=== PATIENT | male | born 1970 | race Caucasian/White ===

== ENCOUNTER 2017-04-18 20:10 | Inpatient (IN) | payer OTHER ==
[~2017-04-18] VITALS: Ht 172.7 cm; Wt 92.1 kg
[2017-04-18 20:49] LABS: HEMOGLOBIN 14.4 gm/dl (14.0-17.5); RED BLOOD COUNT 4.91 M/UL (4.20-5.50); WHITE BLOOD COUNT 12.1 K/UL (4.5-11.0)
[2017-04-18 21:13] LABS: BUN/CREATININE RATIO 18 (0-10)
[2017-04-19] MEDS ORDERED: METOPROLOL SUC200 MG PO (00:18)
[2017-04-19] MEDS ORDERED: XARELTO20 MG PO (00:19)
[2017-04-19] MEDS ORDERED: TAPAZOLE 10 MG10 MG PO (00:21)
[2017-04-19] MEDS ORDERED: ALDACTONE 25MG25 MG PO (00:22)
[2017-04-19] MEDS ORDERED: LISINOPRIL5 MG PO (00:23)
[2017-04-20 05:37] LABS: BUN/CREATININE RATIO 18 (0-10)
[2017-04-22] MEDS ORDERED: LIPITOR TAB 2020 MG PO (16:40)
[2017-04-22] MEDS ORDERED: LANOXIN TAB 00.25 MG PO (16:41)
[2017-04-22] MEDS ORDERED: INDERAL LA80 MG PO (16:43)
== END 2017-04-22 18:25 | disposition home health service (06) | DRG 286 ==
LOC: ER1 20:10 → ZEROF 22:00 → PROG CARE 22:00
PROVIDERS: Emergency Medicine; Internal Medicine Cardiovascular Disease; ADMIT Internal Medicine
PROC: 4A023N8 Measurement of Cardiac Sampling and Pressure, Bilateral, Percutaneous Approach (ICD-10-PCS; principal; 2017-04-19)
PROC: B2111ZZ Fluoroscopy of Multiple Coronary Arteries using Low Osmolar Contrast (ICD-10-PCS; 2017-04-19)
PROC: B2151ZZ Fluoroscopy of Left Heart using Low Osmolar Contrast (ICD-10-PCS; 2017-04-19)
DX: I25.110 Atherosclerotic heart disease of native coronary artery with unstable angina pectoris (principal); I50.23 Acute on chronic systolic (congestive) heart failure; R05 Cough; I10 Essential (primary) hypertension; F17.210 Nicotine dependence, cigarettes, uncomplicated; E05.00 Thyrotoxicosis with diffuse goiter without thyrotoxic crisis or storm; I48.2 Chronic atrial fibrillation; I51.9 Heart disease, unspecified; I95.2 Hypotension due to drugs; T46.1X5A Adverse effect of calcium-channel blockers, initial encounter; Y92.230 Patient room in hospital as the place of occurrence of the external cause; I34.0 Nonrheumatic mitral (valve) insufficiency; I42.0 Dilated cardiomyopathy; I27.2 Other secondary pulmonary hypertension; Z79.01 Long term (current) use of anticoagulants; Z82.49 Family history of ischemic heart disease and other diseases of the circulatory system
CPT/HCPCS: ECHO; 36415; 71010; 80048; 80053; 80061; 82550; 82553; 83735; 83874; 83880; 84439; 84443; 84481; 84484; 85025; 93005; 93306; 96361; 96374; 96375; 99291; C1769; C1894; J1160; J1200; J1644; J2250; J2270; J7030; J7040; Q9963